=== PATIENT | male | born 1995 | race Caucasian/White ===

== ENCOUNTER → 2022-08-08 | Outpatient (REF) | payer OTHER ==
[2022-08-08 13:38] LABS: SEMEN APPEARANCE OPAQUE (OPAQUE)
[2022-08-08 13:39] LABS: SEMEN VISCOSITY LIQUID (LIQUID); SEMEN VOLUME 5.1 ml (2.0-5.0); SEMEN pH 8.5 (7.0-8.0); WBC CONCENTRATION <=1 M/ml (<=1 M/ml)
[2022-08-08 13:40] LABS: SPERM CONCENTRATION 43.7 M/ml (>=15.0)
== END ==
LOC: M LAB REF 12:31
PROVIDERS: ATTEND Physician Assistant
DX: N46.9 Male infertility, unspecified (principal)

== ENCOUNTER → 2022-08-10 | Outpatient (REF) | payer OTHER ==
[2022-08-10 12:21] LABS: SEMEN APPEARANCE OPAQUE (OPAQUE)
[2022-08-10 12:22] LABS: SEMEN VISCOSITY LIQUID (LIQUID); SEMEN VOLUME 1.9 ml (2.0-5.0); SEMEN pH 8.5 (7.0-8.0); SPERM CONCENTRATION 19.7 M/ml (>=15.0); WBC CONCENTRATION >1 M/ml (<=1 M/ml)
== END ==
LOC: M LAB REF 11:46
PROVIDERS: ATTEND Physician Assistant
DX: Z98.52 Vasectomy status (principal)

== ENCOUNTER → 2022-09-07 | Outpatient (REF) | payer OTHER ==
[2022-09-07 10:07] LABS: SEMEN APPEARANCE OPAQUE (OPAQUE); SEMEN VISCOSITY LIQUID (LIQUID); SEMEN VOLUME 5.2 ml (2.0-5.0); SEMEN pH 8.5 (7.0-8.0); SPERM CONCENTRATION 25.3 M/ml (>=15.0); WBC CONCENTRATION <=1 M/ml (<=1 M/ml)
== END ==
LOC: M LAB REF 08:35
PROVIDERS: ATTEND Physician Assistant
DX: N46.9 Male infertility, unspecified (principal)

== ENCOUNTER 2023-10-12 08:43 | Emergency (ER) | payer OTHER ==
[~2023-10-12] VITALS: Ht 188 cm; Wt 120.1 kg
[2023-10-12] MEDS: NS 1,000 ML IV ONE (11:43)
[2023-10-12] MEDS: KETOROLAC 30 MG/ML 1ML VIAL IV ONE (11:44)
[2023-10-12 13:25] VITALS: BP 135/75; TEMP 97.7; O2SAT 98
== END 2023-10-12 13:26 | disposition home or self-care (01) ==
LOC: M ED 08:43
DX: G44.84 Primary exertional headache (principal); F10.10 Alcohol abuse, uncomplicated
CPT/HCPCS: 70450; 80047; 96361; 96374; 99284; J1885